=== PATIENT | female | born 1995 | race Two or more races ===

== ENCOUNTER 2022-04-13 10:48 | Emergency (ER) | payer MEDICAID ==
[2022-04-13 12:33] LABS: SARS-COV-2 RT PCR NEGATIVE (NEGATIVE)
--- NOTE | 2022-04-13 12:39 | EDPHYS ---
Physician Documentation [facility] Name: Mercy Smith Age: 27 yrs Sex: Female : 1995 Arrival Date: 04/13/2022 Time: 10:49 Bed IW2 Private MD: ED Physician Casper Banda HPI: 04/13 12:36 This 27 yrs old Female presents to ER via Ambulatory with complaints of Flu Symptoms - kb 25 wks preg. 12:37 The patient or guardian reports cough, that is intermittent, described as mild, flu kb symptoms, arthralgias, low-grade fever, myalgias. Onset: The symptoms/episode began/occurred 3 day(s) ago. Severity of symptoms: At their worst the symptoms were moderate, in the emergency department the symptoms are unchanged. Modifying factors: The symptoms are alleviated by nothing, the symptoms are aggravated by nothing. Associated signs and symptoms: Pertinent positives: fever, rhinorrhea, sore throat, Pertinent negatives: chest pain, diarrhea, ear ache, nausea, vomiting. The patient has not experienced similar symptoms in the past. The patient has not recently seen a physician. Pt reports cough, congestion, bodyaches, fever, chills, and sore throat for 3 days. . Historical: - Allergies: 11:17 No Known Allergies; jl7 - Home Meds: 11:17 None [Active]; jl7 - PMHx: 11:17 None; jl7 - PSHx: 11:17 section; jl7 - Social history:: Smoking status: Patient denies any tobacco usage or history of. ROS: 12:38 Cardiovascular: Negative for chest pain, palpitations, and edema. kb 12:38 Constitutional: Positive for body aches, chills, fatigue, fever, malaise. 12:38 ENT: Positive for rhinorrhea, sinus congestion, sore throat. 12:38 Respiratory: Positive for cough. 12:38 All other systems are negative. Exam: 12:37 Constitutional: This is a well developed, well nourished patient who is awake, alert, kb and in no acute distress. Head/Face: Normocephalic, atraumatic. ENT: Moist Mucous membranes Cardiovascular: Regular rate and rhythm with a normal S1 and S2. No gallops, murmurs, or rubs. No pulse deficits. Respiratory: Respirations even and unlabored. No increased work of breathing. Talking in full sentences Abdomen/GI: Soft, non-tender. No distention Skin: Warm, dry with normal turgor. Normal color. MS/ Extremity: Pulses equal, no cyanosis. Neurovascular intact. Full, normal range of motion. Neuro: Awake and alert, GCS 15, oriented to person, place, time, and situation. Moves all extremities. Normal gait. Psych: Awake, alert, with orientation to person, place and time. Behavior, mood, and affect are within normal limits. Vital Signs: 11:16 BP 113 / 58; Pulse 95; Resp 15; Temp 97.6; Pulse Ox 100% ; Weight 75.3 kg; Height 5 ft. jl7 3 in. (160.02 cm); Pain 0/10; 11:16 Body Mass Index 29.41 (75.30 kg, 160.02 cm) jl7 MDM: 11:16 Patient medically screened. 12:36 Data reviewed: vital signs, nurses notes. Data interpreted: Pulse oximetry: on room air kb is 100 %. Interpretation: normal. Counseling: I had a detailed discussion with the patient and/or guardian regarding: the historical points, exam findings, and any diagnostic results supporting the discharge/admit diagnosis, lab results, the need for outpatient follow up, a family practitioner, to return to the emergency department if symptoms worsen or persist or if there are any questions or concerns that arise at home. 12:37 ED course: Pt was evaluated and monitored in L\T\D prior to coming to ER.. 04/13 11:14 Order name: COVID-19/FLU A+B; Complete Time: 12:36 [facility] 04/13 11:14 Order name: Strep; Complete Time: 12:08 [facility] 04/13 12:06 Order name: Throat Culture EDMS Administered Medications: No medications were administered Disposition: 16:17 Co-signature as Attending Physician, Casper Banda MD I agree with the assessment and kdr plan of care. Disposition Summary: 04/13/22 12:38 Discharge Ordered Location: Home kb Condition: Stable kb Diagnosis - Influenza due to identified novel influenza A virus kb Followup: kb - With: Emergency Department - When: As needed - Reason: Worsening of condition Followup: kb - With: Private Physician - When: 2 - 3 days - Reason: Recheck today's complaints, Continuance of care, Re-evaluation by your physician Discharge Instructions: - Discharge Summary Sheet kb - Influenza, Adult, [id number] kb Forms: - Medication Reconciliation Form kb - Thank You Letter kb - Antibiotic Education kb - Prescription Opioid Use kb - Work release form ss Signatures: Dispatcher [employer] EDOtilia Montoya, CIERRAC CHIQUITA-Casper Wagner MD MD kdr Leal, Jahala RN RN jl7
--- NOTE | 2022-04-13 12:39 | ER ---
Nurse's Notes [facility] Name: Mercy Smith Age: 27 yrs Sex: Female : 1995 Arrival Date: 04/13/2022 Time: 10:49 Bed IW2 Private MD: Diagnosis: Influenza due to identified novel influenza A virus Presentation: 04/13 11:16 Chief complaint: Patient states: Fever, sore throat, body aches since Wednesday. jl7 Coronavirus screen: Client presents with at least one sign or symptom that may indicate coronavirus-19. Ebola Screen: No symptoms or risks identified at this time. Initial Sepsis Screen: Does the patient meet any 2 criteria? No. Patient's initial sepsis screen is negative. Does the patient have a suspected source of infection? No. Patient's initial sepsis screen is negative. Risk Assessment: Do you want to hurt yourself or someone else? Patient reports no desire to harm self or others. Onset of symptoms was April 11, 2022. 11:16 Method Of Arrival: Ambulatory [facility] 11:16 Acuity: KIRBY 4 jl7 Triage Assessment: 11:17 General: Appears in no apparent distress. uncomfortable, Behavior is calm, cooperative, jl7 appropriate for age. Pain: Denies pain. Historical: - Allergies: 11:17 No Known Allergies; jl7 - Home Meds: 11:17 None [Active]; jl7 - PMHx: 11:17 None; jl7 - PSHx: 11:17 section; jl7 - Social history:: Smoking status: Patient denies any tobacco usage or history of. Screenin:47 Abuse screen: Denies threats or abuse. Denies injuries from another. Nutritional ss screening: No deficits noted. Tuberculosis screening: Never had TB. Fall Risk None identified. Assessment: 12:47 General: Appears ill, Behavior is calm, cooperative. Neuro: Level of Consciousness is ss awake, alert, obeys commands. Respiratory: Airway is patent Respiratory effort is even, unlabored, Respiratory pattern is regular, symmetrical. Derm: Skin is intact, is healthy with good turgor, Skin is dry, Skin is pink, warm \T\ dry. normal. Vital Signs: 11:16 BP 113 / 58; Pulse 95; Resp 15; Temp 97.6; Pulse Ox 100% ; Weight 75.3 kg; Height 5 ft. jl7 3 in. (160.02 cm); Pain 0/10; 11:16 Body Mass Index 29.41 (75.30 kg, 160.02 cm) jl7 ED Course: 10:49 Patient arrived in ED. as 10:51 Otilia Hinds [facility]C [facility] kb 10:51 Casper Banda MD is Attending Physician. kb 11:17 Triage completed. jl7 11:17 Arm band placed on right wrist. jl7 12:47 Rylee Escalona, RN is Primary Nurse. ss 12:47 Patient has correct armband on for positive identification. Bed in low position. ss 12:48 No provider procedures requiring assistance completed. Patient did not have IV access ss during this emergency room visit. Administered Medications: No medications were administered Medication: 12:47 VIS not applicable for this client. ss Outcome: 12:38 Discharge ordered by . kb 12:48 Discharged to home ambulatory. ss 12:48 Condition: good 12:48 Discharge instructions given to patient, Instructed on discharge instructions, follow up and referral plans. Demonstrated understanding of instructions, follow-up care, medications. 12:48 Patient left the ED. ss Signatures: Otilia Hinds FNP-C S[employer]ON [employer]KER-Haley Dodge as Rylee Escalona, RN RN Marisa Roberts RN RN jl7
[2022-04-13 12:53] VITALS: BP 113/58; TEMP 97.6; O2SAT 100
== END 2022-04-13 12:48 | disposition home or self-care (01) ==
LOC: ER 10:48
DX: J10.1 Influenza due to other identified influenza virus with other respiratory manifestations (principal); Z20.822 Contact with and (suspected) exposure to COVID-19
CPT/HCPCS: 87070; 87081; 0240U; 99281